=== PATIENT | male | born 1980 | race Caucasian/White ===

== ENCOUNTER 2024-07-16 05:26 | Day surgery (SDC) | payer OTHER ==
[2024-07-13 13:19] VITALS: BP 123/77
[~2024-07-16] VITALS: Ht 185.4 cm; Wt 170.6 kg
[~2024-07-16 05:26] MED LIST: HYDRALAZINE HC100 MG PO; LASIX80 MG PO; METFORMIN HCL500 MG; TOPROL XL100 M1 PO
[2024-07-16 09:06] LABS: INR 1.05; PROTHROMBIN TIME 11.4 SECONDS (9.0-11.5)
== END 2024-07-16 14:30 | disposition home or self-care (01) ==
LOC: CIR.AMB 05:26
PROVIDERS: ATTEND Internal Medicine
DX: D37.1 Neoplasm of uncertain behavior of stomach (principal); K31.7 Polyp of stomach and duodenum; K29.80 Duodenitis without bleeding